=== PATIENT | male | born 1945 | race Two or more races ===

== ENCOUNTER 2023-10-20 12:00 | Outpatient (CLI) | payer OTHER | END 2023-10-20 12:05 | disposition home or self-care (01) | LOC: RAD 12:00 | PROVIDERS: ATTEND Urology | DX: N20.0 Calculus of kidney (principal); N20.1 Calculus of ureter ==

== ENCOUNTER 2023-10-20 13:58 | Outpatient (CLI) | payer OTHER | END 2023-10-20 14:04 | disposition home or self-care (01) | LOC: EKG 13:58 | PROVIDERS: ATTEND Urology | DX: Z01.810 Encounter for preprocedural cardiovascular examination (principal) ==

== ENCOUNTER 2023-10-22 10:52 | Outpatient (CLI) | payer OTHER ==
[2023-10-22 11:48] LABS: HEMATOCRIT 30.7 % (39.0-48.0); MEAN CELL VOLUME 78.7 fL (80.0-100.00); MEAN CORPUSCULAR HEMOGLOBIN 25.8 pg (27.00-32.0); MEAN CORPUSCULAR HGB CONC 32.7 g/dl (32.0-36.0); PLATELET COUNT 446 K/uL (150-450); RED CELL DISTRIBUTION WIDTH 19.4 % (11.5-14.5)
[2023-10-22 12:17] LABS: INR 1.11; PARTIAL THROMBOPLASTIN TIME 25.3 SECONDS (22.0-34.0); PROTHROMBIN TIME 11.6 SECONDS (9.0-11.5)
[2023-10-22 12:31] LABS: ALBUMIN 3.5 gm/dL (3.4-5.0); BILIRUBIN TOTAL 0.44 mg/dL (0.3-1.2); CALCIUM 9.1 mg/dL (8.5-10.1); CREATININE SERUM 1.81 mg/dL (0.70-1.30); GFR 36.63; GLOBULINA 4.5 G/DL (2.4-3.5); POTASSIUM 4.46 mEq/L (3.5-5.1)
== END 2023-10-22 10:57 | disposition home or self-care (01) ==
LOC: LAB 10:52
PROVIDERS: ATTEND Urology
DX: N20.1 Calculus of ureter (principal); N30.00 Acute cystitis without hematuria

== ENCOUNTER → 2023-11-24 | Outpatient (CLI) | payer OTHER | END | disposition home or self-care (01) | LOC: RAD 15:50 | PROVIDERS: ATTEND Urology | DX: N20.1 Calculus of ureter (principal); N20.0 Calculus of kidney ==

== ENCOUNTER 2023-12-02 10:11 | Inpatient (IN) | payer OTHER ==
[2023-12-01 16:44] LABS: INR 1.17; PARTIAL THROMBOPLASTIN TIME 26.8 SECONDS (22.0-34.0); PROTHROMBIN TIME 12.1 SECONDS (9.0-11.5)
[~2023-12-02] VITALS: Ht 170.2 cm; Wt 51.3 kg
[2023-12-02] MEDS ORDERED: RESTORIL15 MG (13:29)
[2023-12-02 19:03] LABS: ABG pCO2 43.9 mmHg (35-45); BASE EXCESS -6.5 mmol/l; BICARBONATE 20.1 mmol/l (23-25); Tco2 21.5 mmol/l
[2023-12-02 19:04] LABS: allen test SATISFACTORY; o2 100 %; puncture site RADIAL RIGHT
[2023-12-02 20:56] LABS: HEMATOCRIT 35.5 % (39.0-48.0); HEMOGLOBIN 11.8 g/dL (13-16.00); MEAN CELL VOLUME 83.2 fL (80.0-100.00); MEAN CORPUSCULAR HEMOGLOBIN 27.5 pg (27.00-32.0); MEAN CORPUSCULAR HGB CONC 33.1 g/dl (32.0-36.0); PLATELET COUNT 352 K/uL (150-450); RED BLOOD COUNT 4.27 M/uL (4.00-6.00); RED CELL DISTRIBUTION WIDTH 17.5 % (11.5-14.5)
[2023-12-03 06:01] LABS: HEMATOCRIT 31.3 % (39.0-48.0); HEMOGLOBIN 10.3 g/dL (13-16.00); MEAN CELL VOLUME 82.6 fL (80.0-100.00); MEAN CORPUSCULAR HEMOGLOBIN 27.3 pg (27.00-32.0); MEAN CORPUSCULAR HGB CONC 33.1 g/dl (32.0-36.0); PLATELET COUNT 317 K/uL (150-450); RED BLOOD COUNT 3.79 M/uL (4.00-6.00); RED CELL DISTRIBUTION WIDTH 17.4 % (11.5-14.5)
[2023-12-03 07:23] LABS: CALCIUM 8.1 mg/dL (8.5-10.1); CREATININE SERUM 2.11 mg/dL (0.70-1.30); GFR 30.69; POTASSIUM 4.73 mEq/L (3.5-5.1)
[2023-12-03 09:24] LABS: ABG PH 7.399 (7.35-7.45); ABG PO2 237.1 mmHg (80-100); ABG pCO2 32.3 mmHg (35-45)
[2023-12-03 09:25] LABS: BASE EXCESS -4.2 mmol/l; BICARBONATE 19.5 mmol/l (23-25); SaO2 99.8 %; Tco2 20.5 mmol/l
[2023-12-03 09:26] LABS: allen test SATISFACTORY; o2 50 %; puncture site RADIAL RIGHT
[2023-12-04 06:30] LABS: HEMATOCRIT 26.7 % (39.0-48.0); PLATELET COUNT 235 K/uL (150-450); RED CELL DISTRIBUTION WIDTH 17.6 % (11.5-14.5)
[2023-12-04 06:32] LABS: MEAN CORPUSCULAR HEMOGLOBIN 26.6 pg (27.00-32.0)
[2023-12-04 06:33] LABS: HEMOGLOBIN 8.8 g/dL (13-16.00)
[2023-12-04 07:06] LABS: ALBUMIN 2.4 gm/dL (3.4-5.0); BILIRUBIN TOTAL 0.38 mg/dL (0.3-1.2); CALCIUM 7.6 mg/dL (8.5-10.1); CREATININE SERUM 1.89 mg/dL (0.70-1.30); GFR 34.85; GLOBULINA 3.2 G/DL (2.4-3.5); MAGNESIUM 1.9 mg/dL (1.8-2.4); PHOSPHOROUS 4.3 mg/dL (2.5-4.9); POTASSIUM 4.46 mEq/L (3.5-5.1); TOTAL PROTEIN 5.6 gm/dL (6.4-8.2)
[2023-12-04 13:52] LABS: CALCIUM 7.8 mg/dL (8.5-10.1); CHOL HDL RATIO 2.8 (0-5.0); CREATININE SERUM 1.8 mg/dL (0.70-1.30); GFR 36.87; POTASSIUM 4.03 mEq/L (3.5-5.1)
[2023-12-04 20:24] LABS: PH,URINE 6.5 (5.0-8.0); URINE APPEARANCE Turbid; URINE BILIRRUBIN Negative (NEGATIVE); URINE BLOOD Large; URINE COLOR Yellow; URINE LEUKOCYTE Large; URINE NITRATE Negative; URINE PROTEIN 30 (NEGATIVE)
[2023-12-04 20:24] LABS: HEMATOCRIT 28.4 % (39.0-48.0); HEMOGLOBIN 9.4 g/dL (13-16.00); MEAN CELL VOLUME 80.9 fL (80.0-100.00); MEAN CORPUSCULAR HEMOGLOBIN 26.7 pg (27.00-32.0); MEAN CORPUSCULAR HGB CONC 33.1 g/dl (32.0-36.0); PLATELET COUNT 233 K/uL (150-450); RED CELL DISTRIBUTION WIDTH 17.9 % (11.5-14.5)
[2023-12-04 20:27] LABS: URINE BACTERIA 3143.6 uL (0.0-1933); URINE EPITHELIAL CELLS 7.2 uL (0.0-38.8); URINE RBC 466.9 uL (0.0-20.8); URINE WBC 412.3 uL (0.0-23.2)
[2023-12-04 21:28] LABS: URINE GLUCOSE 250 MG/DL (NEGATIVE)
[2023-12-05 08:48] LABS: HEMATOCRIT 31.4 % (39.0-48.0); HEMOGLOBIN 10.5 g/dL (13-16.00); MEAN CELL VOLUME 82.3 fL (80.0-100.00); MEAN CORPUSCULAR HEMOGLOBIN 27.5 pg (27.00-32.0); MEAN CORPUSCULAR HGB CONC 33.4 g/dl (32.0-36.0); PLATELET COUNT 259 K/uL (150-450); RED BLOOD COUNT 3.81 M/uL (4.00-6.00); RED CELL DISTRIBUTION WIDTH 17.6 % (11.5-14.5)
[2023-12-05 09:28] LABS: CREATININE SERUM 1.46 mg/dL (0.70-1.30); GFR 46.94; POTASSIUM 3.77 mEq/L (3.5-5.1)
[2023-12-07 07:23] LABS: HEMATOCRIT 29.8 % (39.0-48.0); MEAN CELL VOLUME 81.5 fL (80.0-100.00); MEAN CORPUSCULAR HGB CONC 33.7 g/dl (32.0-36.0); PLATELET COUNT 251 K/uL (150-450); RED BLOOD COUNT 3.66 M/uL (4.00-6.00)
[2023-12-07 07:30] LABS: ALBUMIN 2.1 gm/dL (3.4-5.0); BILIRUBIN TOTAL 0.44 mg/dL (0.3-1.2); BILIRUBIN,CONJUGATED 0.14 mg/dL (0.0-0.2); BILIRUBIN,UNCONJUGATED 0.3 mg/dL (0.0-0.6); CHOL HDL RATIO 2.6 (0-5.0); TOTAL PROTEIN 5.5 gm/dL (6.4-8.2)
[2023-12-07 07:32] LABS: INR 1.24; PARTIAL THROMBOPLASTIN TIME 31.6 SECONDS (22.0-34.0); PROTHROMBIN TIME 12.8 SECONDS (9.0-11.5)
[2023-12-07 07:41] LABS: ALBUMIN 2.1 gm/dL (3.4-5.0); BILIRUBIN TOTAL 0.4 mg/dL (0.3-1.2); CALCIUM 7.8 mg/dL (8.5-10.1); CREATININE SERUM 1.05 mg/dL (0.70-1.30); GFR 68.67; GLOBULINA 3.5 G/DL (2.4-3.5); MAGNESIUM 2.1 mg/dL (1.8-2.4); POTASSIUM 3.29 mEq/L (3.5-5.1); TOTAL PROTEIN 5.6 gm/dL (6.4-8.2)
[2023-12-07 08:03] LABS: PHOSPHOROUS 1.6 mg/dL (2.5-4.9)
[2023-12-07 08:31] LABS: MEAN CORPUSCULAR HEMOGLOBIN 27.3 pg (27.00-32.0)
[2023-12-07 09:14] LABS: UREA CLEARANCE 20.3 ML/MIN
[2023-12-08 06:16] LABS: HEMATOCRIT 28.9 % (39.0-48.0); HEMOGLOBIN 9.7 g/dL (13-16.00); MEAN CELL VOLUME 82.4 fL (80.0-100.00); MEAN CORPUSCULAR HEMOGLOBIN 27.6 pg (27.00-32.0); MEAN CORPUSCULAR HGB CONC 33.5 g/dl (32.0-36.0); PLATELET COUNT 242 K/uL (150-450); RED BLOOD COUNT 3.51 M/uL (4.00-6.00); RED CELL DISTRIBUTION WIDTH 17.9 % (11.5-14.5)
[2023-12-08 06:37] LABS: CALCIUM 7.7 mg/dL (8.5-10.1); CREATININE SERUM 1.08 mg/dL (0.70-1.30); GFR 66.48; PHOSPHOROUS 2.6 mg/dL (2.5-4.9); POTASSIUM 3.47 mEq/L (3.5-5.1)
[2023-12-09 07:41] LABS: HEMOGLOBIN 9.6 g/dL (13-16.00); MEAN CELL VOLUME 82.3 fL (80.0-100.00); MEAN CORPUSCULAR HEMOGLOBIN 27.3 pg (27.00-32.0); MEAN CORPUSCULAR HGB CONC 33.2 g/dl (32.0-36.0); PLATELET COUNT 233 K/uL (150-450); RED BLOOD COUNT 3.53 M/uL (4.00-6.00); RED CELL DISTRIBUTION WIDTH 17.9 % (11.5-14.5)
[2023-12-09 07:53] LABS: ALBUMIN 2.2 gm/dL (3.4-5.0); BILIRUBIN TOTAL 0.37 mg/dL (0.3-1.2); CALCIUM 7.9 mg/dL (8.5-10.1); CREATININE SERUM 1.06 mg/dL (0.70-1.30); GFR 67.93; GLOBULINA 3.4 G/DL (2.4-3.5); MAGNESIUM 2.1 mg/dL (1.8-2.4); PHOSPHOROUS 2.1 mg/dL (2.5-4.9); POTASSIUM 4.01 mEq/L (3.5-5.1); TOTAL PROTEIN 5.6 gm/dL (6.4-8.2)
[2023-12-09 08:20] LABS: URINE APPEARANCE Turbid; URINE BILIRRUBIN Negative (NEGATIVE); URINE BLOOD Moderate; URINE COLOR Yellow; URINE GLUCOSE Negative (NEGATIVE); URINE LEUKOCYTE Large; URINE NITRATE Negative; URINE PROTEIN 30 (NEGATIVE); URINE UROBILINOGEN 0.2 E.U./dl
[2023-12-09 08:24] LABS: URINE BACTERIA 3505.2 uL (0.0-1933); URINE EPITHELIAL CELLS 13.6 uL (0.0-38.8); URINE RBC 6470.4 uL (0.0-20.8); URINE WBC 532.6 uL (0.0-23.2)
[2023-12-09 08:52] LABS: URINE YEAST MANY /hpf
[2023-12-11 07:30] LABS: HEMOGLOBIN 10.2 g/dL (13-16.00); MEAN CELL VOLUME 84.7 fL (80.0-100.00); MEAN CORPUSCULAR HEMOGLOBIN 27.9 pg (27.00-32.0); MEAN CORPUSCULAR HGB CONC 32.9 g/dl (32.0-36.0); PLATELET COUNT 238 K/uL (150-450); RED BLOOD COUNT 3.66 M/uL (4.00-6.00); RED CELL DISTRIBUTION WIDTH 18.1 % (11.5-14.5)
[2023-12-11 08:08] LABS: ALBUMIN 2.2 gm/dL (3.4-5.0); BILIRUBIN TOTAL 0.33 mg/dL (0.3-1.2); CALCIUM 7.8 mg/dL (8.5-10.1); CREATININE SERUM 0.86 mg/dL (0.70-1.30); GFR 86.46; GLOBULINA 3.5 G/DL (2.4-3.5); MAGNESIUM 2.5 mg/dL (1.8-2.4); PHOSPHOROUS 2.1 mg/dL (2.5-4.9); POTASSIUM 3.98 mEq/L (3.5-5.1); TOTAL PROTEIN 5.7 gm/dL (6.4-8.2)
[2023-12-12 07:43] LABS: ALBUMIN 2.2 gm/dL (3.4-5.0); BILIRUBIN TOTAL 0.39 mg/dL (0.3-1.2); CALCIUM 7.9 mg/dL (8.5-10.1); CREATININE SERUM 1.02 mg/dL (0.70-1.30); GFR 71.01; GLOBULINA 3.7 G/DL (2.4-3.5); POTASSIUM 4.58 mEq/L (3.5-5.1); TOTAL PROTEIN 5.9 gm/dL (6.4-8.2)
[2023-12-14 06:08] LABS: HEMOGLOBIN 9.8 g/dL (13-16.00); MEAN CELL VOLUME 85.1 fL (80.0-100.00); MEAN CORPUSCULAR HEMOGLOBIN 28.7 pg (27.00-32.0); MEAN CORPUSCULAR HGB CONC 33.7 g/dl (32.0-36.0); PLATELET COUNT 258 K/uL (150-450); RED CELL DISTRIBUTION WIDTH 17.3 % (11.5-14.5)
[2023-12-14 06:30] LABS: INR 1.2; PROTHROMBIN TIME 12.4 SECONDS (9.0-11.5)
[2023-12-14 06:42] LABS: ALBUMIN 2.2 gm/dL (3.4-5.0); ALKALINE PHOSPHATASE 82 U/L (50-136); ALT/SGPT 12 U/L (12-78); ANION GAP 12 (10.0-20.0); AST/SGOT 17 U/L (15-37); BILIRUBIN TOTAL 0.37 mg/dL (0.3-1.2); BILIRUBIN,CONJUGATED < 0.10 mg/dL (0.0-0.2); BILIRUBIN,UNCONJUGATED 0.27 mg/dL (0.0-0.6); BLOOD UREA NITROGEN 31 mg/dL (7-18); BUN CREA RATIO 30 (7.0-25.0); CALCIUM 7.7 mg/dL (8.5-10.1); CARBON DIOXIDE 22 mEq/L (21-32); CHLORIDE 110 mmol/L (98-107); CHOL HDL RATIO 3.9 (0-5.0); CHOLESTEROL 114 mg/dL (0-200); CREATININE SERUM 1.04 mg/dL (0.70-1.30); GFR 69.43; GLOBULINA 3.7 G/DL (2.4-3.5); GLUCOSE FASTING 169 mg/dL (65-100); HDL 29 mg/dl (40-60); LDL 61 mg/dl (0-130); OSMOLALITY SERUM 288 MOSM/KG (275-295); SODIUM 139 mmol/L (136-145); TOTAL PROTEIN 5.9 gm/dL (6.4-8.2); TRIGLYCERIDES 120 mg/dL (0-150); VLDL 24 (0-39)
[2023-12-14 08:25] LABS: UREA CLEARANCE 19.1 ML/MIN
[2023-12-16] MEDS ORDERED: NIFEDIPINE ER30 MG PO (15:44)
== END 2023-12-16 16:15 | disposition home or self-care (01) | DRG 659 ==
LOC: O/R 10:11 → SURH 13:00 → SURG 12-03 09:01 → SURH 12-07 08:53
PROVIDERS: Internal Medicine; Internal Medicine Infectious Disease; Surgery; ADMIT Urology; ATTEND Urology
PROC: BT1FZZZ Fluoroscopy of Left Kidney, Ureter and Bladder (ICD-10-PCS; 2023-12-02)
PROC: 0TC13ZZ Extirpation of Matter from Left Kidney, Percutaneous Approach (ICD-10-PCS; principal; 2023-12-02 13:00)
PROC: BW21ZZZ Computerized Tomography (CT Scan) of Abdomen and Pelvis (ICD-10-PCS; 2023-12-03)
PROC: 02HV33Z Insertion of Infusion Device into Superior Vena Cava, Percutaneous Approach (ICD-10-PCS; 2023-12-03)
PROC: BW21YZZ Computerized Tomography (CT Scan) of Abdomen and Pelvis using Other Contrast (ICD-10-PCS; 2023-12-06)
PROC: 0TP93DZ Removal of Intraluminal Device from Ureter, Percutaneous Approach (ICD-10-PCS; 2023-12-07)
PROC: 0T763DZ Dilation of Right Ureter with Intraluminal Device, Percutaneous Approach (ICD-10-PCS; 2023-12-07)
PROC: BW21ZZZ Computerized Tomography (CT Scan) of Abdomen and Pelvis (ICD-10-PCS; 2023-12-14)
DX: N20.0 Calculus of kidney (principal); K63.1 Perforation of intestine (nontraumatic); S36.509A Unspecified injury of unspecified part of colon, initial encounter; N17.9 Acute kidney failure, unspecified; N39.0 Urinary tract infection, site not specified; N99.71 Accidental puncture and laceration of a genitourinary system organ or structure during a genitourinary system procedure; N20.1 Calculus of ureter; D64.9 Anemia, unspecified; B95.2 Enterococcus as the cause of diseases classified elsewhere; B96.5 Pseudomonas (aeruginosa) (mallei) (pseudomallei) as the cause of diseases classified elsewhere; B96.20 Unspecified Escherichia coli [E. coli] as the cause of diseases classified elsewhere

== ENCOUNTER 2024-01-07 12:36 | Outpatient (CLI) | payer OTHER ==
[~2024-01-07 12:36] MED LIST: NIFEDIPINE ER30 MG PO; RESTORIL15 MG
== END 2024-01-07 12:44 | disposition home or self-care (01) ==
LOC: RAD 12:36
PROVIDERS: ATTEND Urology
DX: N20.0 Calculus of kidney (principal)